=== PATIENT | female | born 1940 | race Caucasian/White ===

== ENCOUNTER 2020-01-21 17:05 | Observation (INO) ==
--- NOTE | 2020-01-21 17:33 | ERNOTE ---
GI Bleeding/Rectal Pain ER Date of Service: 01/21/20 Presenting Symptoms: vomiting blood Time Seen by Provider: 01/21/20 17:30 Source: patient Exam Limitations: no limitations Immunizations: IMMUNIZATION HX Immunizations Up to Date No History of Influenza Vaccine Yes Hx Pneumococcal Vaccination Yes Allergies/Adverse Reactions: Allergies No Known Allergies Allergy (Verified 01/21/20 17:18) Home Medications: HOME MEDICATIONS Aspirin 81 mg PO DAILY 01/21/20 [Last Taken Unknown] - Pain Score Pain Score #1 Pain Score: 0 Narrative: The patient is a 79 year old female who presents for hematemesis which has been present since today at 1400. There are associated symptoms of dizziness/lightheadedness. The patient denies pain. There are no alleviating factors. There are no aggravating factors. Previous treatments have included: none. The past medical history includes: Trigeminal neuralgia. The social history is negative. The patient has had no ill contact. Patient states this afternoon she develop nausea and unsettled stomach followed by vomiting of blood and clots. Patient reports vomitus was dark red to brown in color with several small blood clots. Patient states she manages her trigeminal neuralgia pain with Asa 81mg po and typically takes 8 tabs daily. Patient reports normal bowel movement yesterday of normal brown stool, denies any blood or dark stool with bowel movement. Patient denies daily alcohol use. Patient denies any trauma, harsh coughing or choking events. Patient states she last ate hamburger at 1200. Review of Systems - Review of Systems Constitutional: Present: chills, fatigue. Absent: recent illness, fever EYE: Present: no symptoms reported. Absent: vision changes ENT: Present: no symptoms reported. Absent: ear pain, nasal drainage, sore throat Respiratory: Present: no symptoms reported. Absent: shortness of breath, cough Cardiology: Present: no symptoms reported. Absent: chest pain Gastrointestinal/Abdominal: Present: nausea, vomiting. Absent: diarrhea, constipation, abdominal pain Genitourinary: Present: no symptoms reported. Absent: dysuria, decreased ur inary output Musculoskeletal: Present: no symptoms reported Skin: Present: no symptoms reported. Absent: rash Neurological: Present: dizziness/light-headedness All Other Systems: All systems neg except as marked Medical History (Last Reviewed 01/21/20 @ 17:46 by ALICIA Hernandez) History of ankle fracture History of kidney stones History of trigeminal neuralgia History of wrist fracture history of sternum fracture Surgical History: Surgical History (Last Reviewed 01/21/20 @ 17:45 by ALICIA Hernandez) History of cholecystectomy History of hysterectomy Family History: Family History (Last Reviewed 01/21/20 @ 17:45 by ALICIA Hernandez) Other Family history non-contributory Social History: (Last Reviewed 01/21/20 @ 17:45 by ALICIA Hernandez) Tobacco: Smoking Status: Never smoker Physical Exam - Physical Exam General Appearance: Present: wd/wn, alert, no apparent distress Head Exam: Present: normal inspection, no evidence of injury Eye Exam: Normal inspection: bilateral, PERRL: bilateral, EOMI: bilateral Ears, Nose, Throat: Present: normal pharynx Neck: Present: normal inspection, nontender Respiratory: Present: no respiratory distress, normal breath sounds, no accessory muscle use, lungs clear Cardiovascular/Chest: Present: no murmur, normal peripheral pulses, tachycardia - rate 104 Gastrointestinal/Abdominal: Present: normal bowel sounds, nontender, nondistended, soft, no organomegaly Neurological Exam: Present: alert, oriented, normal mood/affect, no motor/sensory deficits Skin Exam: Present: warm/dry, pallor Progress - Date and Time Seen: Date and Time: 01/21/20 18:37 Case discussed with , will present to evaluate patient for plan for EGD. 01/21/20 18:48 Discussed results as well as plan of care with patient, verbalized understanding. - Results and Orders Patient's Lab Results:: I have reviewed the patient's lab results. - Vital Signs Patient's Vital Signs:: I have reviewed the patient's vital signs. Vital Signs: Vital Signs 01/21/20 17:15 Temperature 36.2 C Pulse Rate 104 H Respiratory Rate 18 Blood Pressure 113/64 O2 Sat by Pulse Oximetry 97 - X-Ray X-Ray #1 X-Ray: abdomen Interpretation: Reviewed by me X-ray Comments: IMPRESSION: 1. No acute plain film pathology detected. Electronically signed by Toney Rodrigues M.D.. - Progress/Reassessment Chief Complaint: GI Bleed Progress:: Improved Departure Clinical Impression: Upper GI bleed - Departure Disposition: Still a patient Condition: Stable
[2020-01-21] MEDS ORDERED: PANTOPRAZOLE SODIUM 40 MG/100 ML PIGGYBACK IV ONE (17:44)
[2020-01-21 17:53] LABS: Hematocrit 33.6 % (37.0-47.0); Hemoglobin 10.6 gm/dL (12.5-16.0); Mean Cell Volume 88.2 fl (78-100); Mean Corpuscular Hemoglobin 27.8 pg (27-31); Mean Corpuscular Hgb Conc 31.5 g/dl (32-36); Mean Platelet Volume 10.2 fl (8-12.5); Neutrophil # 7.7 K/mm3 (1.3-6.0); Platelet Count 281 K/mm3 (150-450); Red Blood Count 3.81 M/mm3 (4.2-5.4); Red Cell Distribution Width 15.1 % (11.5-14.0); White Blood Count 9.6 K/mm3 (4.0-10.5)
[2020-01-21] MEDS: NORMAL SALINE 1,000 ML IV ONE ×2 (17:55→20:05)
[2020-01-21 18:07] LABS: Prothrombin Time (Patient) 10.7 Seconds (9.1-10.7)
[2020-01-21 18:09] LABS: ALT 11 U/L (19-67); AST 11 U/L (0-48); Alkaline Phosphatase * 126 U/L (50-170); Anion Gap 10.7 mmol/L (6.8-13.8); BUN/Creatinine Ratio 27.8 (9.0-21.6); Bilirubin, Total 0.3 mg/dL (0.0-1.1); Blood Urea Nitrogen 22 mg/dL (3-23); Calcium * 8.5 mg/dL (7.9-10.9); Carbon Dioxide 30.1 mmol/L (24-32.6); Chloride 107 mmol/L (97-106); Glucose * 124 mg/dL (70-110); Potassium 3.8 mmol/L (3.4-4.6); Sodium 144 mmol/L (132-142); Total Protein 6.4 gm/dL (6.2-8.2)
[2020-01-21 18:10] LABS: INR 1.08 INR (0.92-1.08); Partial Thrombolplastin Time 22.9 Seconds (24-32)
--- NOTE | 2020-01-21 19:02 | HP ---
Chief Complaint - Chief Complaint Date of Service: 01/21/20 Time of Service: 19:01 Chief Complaint: throwing up blood History of Present Illness: This AM she got up to go to the bathroom and felt light headed. She lay down again. Later she got up again and again got light headed. She laid down on the couch and then began to vomit blood. She takes a chewable "baby aspirin" about 8 times a day for trigeminal neuralgia pain. Hgb 10.6 plt 281 and INR 1.08 Medical History (Last Reviewed 01/21/20 @ 19:02 by Joan Parkinson MD) History of ankle fracture History of kidney stones History of trigeminal neuralgia History of wrist fracture history of sternum fracture Surgical History: Surgical History (Last Reviewed 01/21/20 @ 19:02 by Joan Parkinson MD) History of cholecystectomy History of hysterectomy Family History: Family History (Last Reviewed 01/21/20 @ 19:02 by Joan Parkinson MD) Other Family history non-contributory Social History: (Last Reviewed 01/21/20 @ 19:02 by Joan Parkinson MD) Tobacco: Smoking Status: Never smoker Review Of Systems (GEN) - Review of Systems Generalized/Overall Review: Absent: Chills, Fever EENTM: Present: Other - trigeminal neuralgia right side Respiratory: Present: No Symptoms Reported. Absent: Cough, Shortness of Breath Cardiac: Present: No Symptoms Reported. Absent: Chest Pain, Edema, Palpitations Abdominal: Present: Hematemesis. Absent: Abdominal Pain, Diarrhea, Bright blood from rectum Genitourinary: Present: No Symptoms Reported Musculoskeletal: Present: No Symptoms Reported Neurological: Present: Other - trigeminal neuralgia Skin: Present: No Symptoms Reported Endocrine: Present: No Symptoms Reported Immunizations: IMMUNIZATION HX Immunizations Up to Date No History of Influenza Vaccine Yes Hx Pneumococcal Vaccination Yes Allergies/Adverse Reactions: Allergies Allergy/AdvReac Type Severity Reaction Status Date / Time No Known Allergies Allergy Verified 01/21/20 17:18 Home Medications: HOME MEDICATIONS Aspirin 81 mg PO DAILY 01/21/20 [Last Taken Unknown] Exam - Exam Vital Signs: Vital Signs - Last Taken Temp 36.2 C 01/21/20 17:15 Pulse 91 01/21/20 18:53 Resp 19 01/21/20 18:53 BP 119/63 01/21/20 18:53 Pulse Ox 99 01/21/20 18:53 Constitutional: Present: Alert, Oriented x3, No distress ENT Exam: Present: normal ENT inspection, other - poor vision Eye Exam: bilateral eye: normal inspection Neck: Present: full range of motion, normal inspection Breasts: Present: Exam deferred Respiratory: Present: normal breath sounds Cardiovascular/Chest: Present: regular rate, rhythm Abdomen: Present: Normal bowel sounds, soft, nondistended /Rectal: Present: Exam deferred Extremity: Present: normal range of motion, normal inspection, no pedal edema, no calf tenderness Skin Exam: Present: pallor 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, normal cerebellar test, no motor/sensory deficits Appearance: Present: appropriate appearance Eye contact: Present: cooperative, good eye contact, normal speech Thoughts: Present: normal thought pattern Diagnostic Studies: Abnormal Lab Results 01/21/20 01/21/20 01/21/20 Range/Units 17:45 17:45 17:45 RBC 3.81 L (4.2-5.4) M/mm3 Hgb 10.6 L (12.5-16.0) gm/dL Hct 33.6 L (37.0-47.0) % MCHC 31.5 L (32-36) g/dl RDW 15.1 H (11.5-14.0) % Neutrophils % 80.0 H (42-75.0) % Lymphocytes % 12.7 L (20-51) % Neutrophils # 7.7 H (1.3-6.0) K/mm3 Lymphocytes # 1.22 L (1.5-3.5) k/mm3 PTT ([place]) 22.9 L (24-32) Seconds Sodium 144 H (132-142) mmol/L Plasma Sodium 144 H (130-142) mmol/L Chloride 107 H (97-106) mmol/L BUN/Creatinine Ratio 27.8 H (9.0-21.6) Random Glucose 124 H (70-110) mg/dL ALT 11 L (19-67) U/L Albumin 3.0 L (3.4-5.0) gm/dl Laboratory Results WBC 9.6 K/mm3 (4.0-10.5) 01/21/20 17:45 RBC 3.81 M/mm3 (4.2-5.4) L 01/21/20 17:45 Hgb 10.6 gm/dL (12.5-16.0) L 01/21/20 17:45 Hct 33.6 % (37.0-47.0) L 01/21/20 17:45 MCV 88.2 fl (78-100) 01/21/20 17:45 MCH 27.8 pg (27-31) 01/21/20 17:45 MCHC 31.5 g/dl (32-36) L 01/21/20 17:45 RDW 15.1 % (11.5-14.0) H 01/21/20 17:45 Plt Count 281 K/mm3 (150-450) 01/21/20 17:45 MPV 10.2 fl (8-12.5) 01/21/20 17:45 Immature Gran % (Auto) 0.30 % (0.001-0.429) 01/21/20 17:45 Immature Gran # (Auto) 0.03 K/mm3 (0.000-0.0310) 01/21/20 17:45 Neutrophils % 80.0 % (42-75.0) H 01/21/20 17:45 Lymphocytes % 12.7 % (20-51) L 01/21/20 17:45 Monocytes % 6.0 % (0.0-9) 01/21/20 17:45 Eosinophils % 0.6 % (0.0-3.0) 01/21/20 17:45 Basophils % 0.4 % (0.0-1.0) 01/21/20 17:45 Nucleated RBC % 0.0 k/mm3 (0-1) 01/21/20 17:45 Neutrophils # 7.7 K/mm3 (1.3-6.0) H 01/21/20 17:45 Lymphocytes # 1.22 k/mm3 (1.5-3.5) L 01/21/20 17:45 Monocytes # 0.6 k/mm3 (0.0-1.0) 01/21/20 17:45 Eosinophils # 0.1 k/mm3 (0.0-0.7) 01/21/20 17:45 Absolute Basophils 0.0 k/mm3 (0.0-0.1) 01/21/20 17:45 PT 10.7 Seconds (9.1-10.7) 01/21/20 17:45 INR (Anticoag Therapy) 1.08 INR (0.92-1.08) 01/21/20 17:45 PTT (Trip) 22.9 Seconds (24-32) L 01/21/20 17:45 Sodium 144 mmol/L (132-142) H 01/21/20 17:45 Plasma Sodium 144 mmol/L (130-142) H 01/21/20 17:45 Potassium 3.8 mmol/L (3.4-4.6) 01/21/20 17:45 Chloride 107 mmol/L (97-106) H 01/21/20 17:45 Carbon Dioxide 30.1 mmol/L (24-32.6) 01/21/20 17:45 Anion Gap 10.7 mmol/L (6.8-13.8) 01/21/20 17:45 BUN 22 mg/dL (3-23) 01/21/20 17:45 Creatinine 0.79 mg/dL (0.4-1.4) 01/21/20 17:45 Est GFR (Non-Af Amer) 75 mL/min (60-130) 01/21/20 17:45 BUN/Creatinine Ratio 27.8 (9.0-21.6) H 01/21/20 17:45 Random Glucose 124 mg/dL (70-110) H 01/21/20 17:45 Calcium 8.5 mg/dL (7.9-10.9) 01/21/20 17:45 Calcium Adj for Albumin 9.0 mg/dL (8.4-10.2) 01/21/20 17:45 Total Bilirubin 0.3 mg/dL (0.0-1.1) 01/21/20 17:45 AST 11 U/L (0-48) 01/21/20 17:45 ALT 11 U/L (19-67) L 01/21/20 17:45 Alkaline Phosphatase 126 U/L (50-170) 01/21/20 17:45 C-Reactive Prot, Quant Less than 0.2 mg/dL (0.0-0.9) 01/21/20 17:45 Total Protein 6.4 gm/dL (6.2-8.2) 01/21/20 17:45 Albumin 3.0 gm/dl (3.4-5.0) L 01/21/20 17:45 Assessment/Plan - Assessment/Plan (1) Upper GI bleed Assessment: Pamphlets on GERD and EGD reviewed and given. Explained rationale for EGD to determine if bleeding is from gastritis or ulcer. The possible risks and complications were discussed. After an interactive discussion, her questions were answered to her apparent satisfaction and informed consent for EGD with biopsy obtained. Problem: Acute
[2020-01-21] MEDS ORDERED: PROPOFOL VIAL IV ONE (19:32)
--- NOTE | 2020-01-21 19:38 | ANES ---
Anesthesia Pre Procedure Eval Vitals/Labs: Last Vital Signs Temp 36.2 C 01/21/20 17:15 Pulse 93 01/21/20 19:31 Resp 16 01/21/20 19:31 BP 139/72 01/21/20 19:31 Pulse Ox 99 01/21/20 19:31 HOME MEDICATIONS Aspirin 81 mg PO DAILY 01/21/20 [Last Taken Unknown] Allergies/Adverse Reactions: Allergies Allergy/AdvReac Type Severity Reaction Status Date / Time No Known Allergies Allergy Verified 01/21/20 17:18 - Planned Procedure Planned Procedure: Throwing up blood x 2 hrs Medication List Reviewed:: Yes Allergies Verified: Yes Medical History (Last Reviewed 01/21/20 @ 19:37 by Vicente Mckenzie CRNA) History of ankle fracture History of kidney stones History of trigeminal neuralgia History of wrist fracture history of sternum fracture Surgical History (Last Reviewed 01/21/20 @ 19:37 by Vicente Mckenzie CRNA) History of cholecystectomy History of hysterectomy Family History (Last Reviewed 01/21/20 @ 19:37 by Vicente Mckenzie CRNA) Other Family history non-contributory - Family Anesthesia History Family History:: no untoward family reactions to anesthesia - Airway/Neck/Teeth Within Normal Limits:: Yes Denture Type: Full upper, Full lower Neck Exam: full range of motion Mallampatti Score: 2 Thyromental (T-M) distance: > 6 cm Mandibulo Hyoid distance: > 3 cm - Respiratory Respiratory Physical: lungs clear Sleep Apnea currently treated: No Sleep Apnea by current assessment: No - Cardiovascular Tolerate Activity: Fair Heart Sounds: S1 & S2, Regular - Gastrointestinal NPO since: 1199 - Anesthesia Assessment and Plan ASA Class: PS, II, E Anesthesia Type Plan: MAC Planned difficult intubation/equipment available: No
--- NOTE | 2020-01-21 20:28 | ANES ---
Post Anesthesia Assessment - Vital Signs Vitals: Last Vital Signs Temp 36.2 C 01/21/20 17:15 Pulse 93 01/21/20 19:31 Resp 16 01/21/20 19:31 BP 139/72 01/21/20 19:31 Pulse Ox 99 01/21/20 19:31 Airway Patency: Normal - Mental Status Level Of Consciousness: Awake - Pain Level Pain Score: 0 - N/V Assessment Nausea/Vomiting Presence: None Dehydration:: No
--- NOTE | 2020-01-21 20:28 | ANES ---
Post Anesthesia Discharge - Transfer of Care Transfer of Care handoff given to nurse: Yes - Anesthesia Post Op Note Anesthesia Post Op Note: discharged to room 114
[2020-01-21] MEDS ORDERED: ONDANSETRON HCL/PF 2 MG/ML VIAL IV PRN (20:38)
[2020-01-21] MEDS ORDERED: ACETAMINOPHEN 1,000 MG/100 ML BTL IV ONE (20:45)
--- NOTE | 2020-01-21 20:56 | OR ---
Operative Report - Dictated Report Narrative: Operative Report Date of operation: 01/21/2020 Preoperative diagnosis: Upper GI bleeding Postoperative diagnosis: Upper GI bleeding, site undetermined. Gastritis Operation: EGD with biopsies Surgeon: Dr Parkinson Anesthesia: ALEC Mckenzie CRNA Indications for procedure: The patient is a 79-year-old female who presented to the emergency room after an episode of hematemesis. She takes many chewable aspirin daily for trigeminal neuralgia. Findings: Hiatal hernia, gastritis, old blood and clots in the stomach. No active bleeding site identified. Normal esophagus, no Connie-Hilliard tear, normal duodenal bulb Narrative of procedure: The patient was identified preoperatively, and prior to the administration of anesthetic a multidisciplinary timeout was observed With the patient in the recumbent position, a bite-block was placed, intravenous sedation administered, and the patient's eyes covered with a towel. The flexible fiberoptic gastroscope was advanced into the posterior pharynx which appeared normal. There was no blood from the nasopharynx. The supraglottic larynx appeared normal. The cords appeared normal, moved well, and opposed in the midline. The scope was advanced under direct vision into the proximal esophagus which appeared normal. There was old blood in the esophagus refluxing from the stomach. The esophagus appeared freely distensible with normal mucosa. There were no esophageal varices. The esophageal mucosa appeared normal down to the gastroesophageal junction which was sharp and noninflamed. The GE junction appeared normally distensible. There was a sliding hiatal hernia. The scope was advanced into the stomach which was insufflated with air. The stomach was filled with old blood and clots. As much of this material as possible was suctioned to prevent vomiting and aspiration. The patient was repositioned so that all portions of the fundus and antrum were visualized. There was marked gastritis but no selene ulcers or neoplastic lesions or vascular malformations were identified. The pylorus appeared patent. The scope was advanced into the duodenal bulb which appeared normal. The scope was advanced further to the horizontal portion of the duodenum which appeared normal. The scope was slowly withdrawn through the duodenal bulb with confirmation that no active ulcer was present. The scope was withdrawn into the stomach and sales representative cash registers biopsies of gastric mucosa obtained for CLOtest and pathology. The biopsy sites were seen to be hemostatic. As much blood as possible was suctioned. The insufflated air was removed, the scope withdrawn from the patient, and the procedure terminated. The patient tolerated the anesthetic and procedure well without complication and was transferred to the regular floor awake and in stable condition. Plan at this time is for overnight observation with IV fluids, serial hemoglobin hematocrit determinations, proton pump inhibitor, ice chips only, IV Tylenol for pain. Reviewed and electronically signed
[2020-01-21] MEDS: NORMAL SALINE 1,000 ML IV PRN (21:20)
[2020-01-22 00:12] LABS: Hematocrit 25.8 % (37.0-47.0); Hemoglobin 8.4 gm/dL (12.5-16.0)
[2020-01-22 06:14] LABS: Hematocrit 26.7 % (37.0-47.0); Hemoglobin 8.6 gm/dL (12.5-16.0)
[2020-01-22] MEDS: NORMAL SALINE 1,000 ML IV PRN (06:59)
[2020-01-22] MEDS ORDERED: ACETAMINOPHEN 1,000 MG/100 ML BTL IV PRN (09:15)
--- NOTE | 2020-01-22 09:22 | PN ---
Subjective - Date and Time Seen Date: 01/22/20 Time: 09:17 Objective Objective Narrative: Feels "much better". Not dizzy when up to BR. Moved her bowels and stomach is growling like could drink something. No neuralgia pain all night. Hgb fell to 8.4 but then stable at 8.6 - Review of Systems Generalized/Overall Review: Denies: Chills, Fever EENTM: Reports: No Symptoms Reported Respiratory: Reports: No Symptoms Reported. Denies: Shortness of Breath Cardiac: Reports: No Symptoms Reported. Denies: Chest Pain, Palpitations Abdominal: Denies: Hematemesis, Abdominal Pain, Melena Genitourinary Symptoms: Reports: No Symptoms Reported Musculoskeletal Complaints: Reports: No Symptoms Reported Neurological: Reports: No Symptoms Reported Skin: Reports: No Symptoms Reported Endocrine: Reports: No Symptoms Reported - Vitals Vitals: Last Vital Signs Temp 37.4 C 01/22/20 06:00 Pulse 76 01/22/20 07:21 Resp 12 01/22/20 07:21 BP 131/69 01/22/20 07:21 Pulse Ox 96 01/22/20 07:21 - Abnormal Lab Findings Abnormal Lab Findings: Abnormal Lab Results 01/21/20 01/21/20 01/21/20 Range/Units 17:45 17:45 17:45 RBC 3.81 L (4.2-5.4) M/mm3 Hgb 10.6 L (12.5-16.0) gm/dL Hct 33.6 L (37.0-47.0) % MCHC 31.5 L (32-36) g/dl RDW 15.1 H (11.5-14.0) % Neutrophils % 80.0 H (42-75.0) % Lymphocytes % 12.7 L (20-51) % Neutrophils # 7.7 H (1.3-6.0) K/mm3 Lymphocytes # 1.22 L (1.5-3.5) k/mm3 PTT (Trip) 22.9 L (24-32) Seconds Sodium 144 H (132-142) mmol/L Plasma Sodium 144 H (130-142) mmol/L Chloride 107 H (97-106) mmol/L BUN/Creatinine Ratio 27.8 H (9.0-21.6) Random Glucose 124 H (70-110) mg/dL ALT 11 L (19-67) U/L Albumin 3.0 L (3.4-5.0) gm/dl 01/22/20 01/22/20 Range/Units 00:10 06:10 RBC (4.2-5.4) M/mm3 Hgb 8.4 L 8.6 L (12.5-16.0) gm/dL Hct 25.8 L 26.7 L (37.0-47.0) % MCHC (32-36) g/dl RDW (11.5-14.0) % Neutrophils % (42-75.0) % Lymphocytes % (20-51) % Neutrophils # (1.3-6.0) K/mm3 Lymphocytes # (1.5-3.5) k/mm3 PTT ([place]) (24-32) Seconds Sodium (132-142) mmol/L Plasma Sodium (130-142) mmol/L Chloride (97-106) mmol/L BUN/Creatinine Ratio (9.0-21.6) Random Glucose (70-110) mg/dL ALT (19-67) U/L Albumin (3.4-5.0) gm/dl - Exam Constitutional: Present: Alert, Oriented x3, Cooperative, Well nourished, No distress ENT Exam: Present: normal ENT inspection Neck: Present: normal inspection Respiratory: Present: no respiratory distress Cardiovascular/Chest: Present: regular rate, rhythm Abdomen: Present: nontender /Rectal: Present: Exam deferred Extremity: Present: normal range of motion, normal inspection Skin Exam: Present: pallor 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 Saline lock if tolerated. Will trial IV Tylenol if neuralgia pain returns. Re-check Hgb/Hct at noon. - Problems/Diagnosis (1) Upper GI bleed Problem: Acute
[2020-01-22 11:33] LABS: Urine Appearance Clear (CLEAR); Urine Bilirubin Negative (NEGATIVE); Urine Blood 50 /ul (NEGATIVE); Urine Color Yellow; Urine Ketone Negative (NEGATIVE)
[2020-01-22 11:34] LABS: Urine Bacteria None Seen; Urine Nitrite Negative (NEGATIVE); Urine Protein Negative (NEGATIVE); Urine RBC 0-5 /hpf (0-5); Urine Specific Gravity 1.015 SP.GR. (1.005-1.010); Urine Urobilinogen Normal (NORMAL); Urine WBC 0-5 /hpf (0-5)
[2020-01-22 11:59] LABS: Hematocrit 26.8 % (37.0-47.0); Hemoglobin 8.5 gm/dL (12.5-16.0)
--- NOTE | 2020-01-22 14:54 | DS ---
(1) Upper GI bleed Problem: Resolved Date of Discharge:: 01/22/20 Hospital Course: She was taken to the operating room for an EGD which revealed the stomach full of blood, however no active bleeding sites were identified Specifically there was no evidence of ulcer. She did have ch gastropathy (pathology and CLOtest pending) Her vital signs remained normal. Her hemoglobin decreased initially from 10.6- 8.4 but then remained stable at 8.6 and 8.5 today. She was able to tolerate clear liquids and was up without assistance. She did pass some black bowel movements. She will be discharged home on diet as tolerated. She is specifically not to take any more aspirin-containing products She had success with Tylenol for her neuralgia pain while in hospital--- and she will continue that for discomfort She will be prescribed pantoprazole 40 mg p.o. daily for 28 days and ferrous sulfate 325 mg p.o. q. OD Her case was discussed with Dr. Valdez who has agreed to see the patient to establish and to follow-up after this admission. Procedures Performed: see notes below - EGD with biopsies Results and Findings: Lab Pending Results 01/21/20 17:45: WBC 9.6, RBC 3.81 L, Hgb 10.6 L, Hct 33.6 L, MCV 88.2, MCH 27.8, MCHC 31.5 L, RDW 15.1 H, Plt Count 281, MPV 10.2, Immature Gran % (Auto) 0.30, Immature Gran # (Auto) 0.03, Neutrophils % 80.0 H, Lymphocytes % 12.7 L, Monocytes % 6.0, Eosinophils % 0.6, Basophils % 0.4, Nucleated RBC % 0.0, Neutrophils # 7.7 H, Lymphocytes # 1.22 L, Monocytes # 0.6, Eosinophils # 0.1, Absolute Basophils 0.0 01/21/20 17:45: PT 10.7, INR (Anticoag Therapy) 1.08, PTT (Trip) 22.9 L 01/21/20 17:45: Sodium 144 H, Plasma Sodium 144 H, Potassium 3.8, Chloride 107 H, Carbon Dioxide 30.1, Anion Gap 10.7, BUN 22, Creatinine 0.79, Est GFR (Non-Af Amer) 75, BUN/Creatinine Ratio 27.8 H, Random Glucose 124 H, Calcium 8.5, Calcium Adj for Albumin 9.0, Total Bilirubin 0.3, AST 11, ALT 11 L, Alkaline Phosphatase 126, C-Reactive Prot, Quant Less than 0.2, Total Protein 6.4, Albumin 3.0 L 01/21/20 17:45: Blood Type B Negative, Antibody Screen Negative 01/22/20 00:10: Hgb 8.4 L, Hct 25.8 L 01/22/20 06:10: Hgb 8.6 L, Hct 26.7 L 01/22/20 11:16: Urine Color Yellow, Urine Appearance Clear, Urine pH 7.0, Ur Specific [place] 1.015, Urine Protein Negative, Urine Glucose (UA) Negative, Urine Ketones Negative, Urine Blood 50 H, Urine Nitrate Negative, Urine Bilirubin Negative, Urine Urobilinogen Normal, Ur Leukocyte Esterase Negative, Urine RBC 0-5, Urine WBC 0-5, Ur Epithelial Cells 0-5, Urine Bacteria None seen, Urine Culture Comments No culture indicated 01/22/20 11:56: Hgb 8.5 L, Hct 26.8 L Discharge Location: Home Disposition: Home self-care Condition: Good Discharge Activity: Activity as tolerated Discharge Diet: General/regular food Referrals: Blanco Bustillo MD [Primary Care Provider] - Problem Oriented Discharge Instructions to Patient/Family: Anemia, Nonspecific Additional Patient Instructions (free text): No aspirin-containing products Use OTC Tylenol for discomfort Complete Home Medications List: Complete Home Medication List: Ferrous Sulfate [Iron] 325 mg PO DAILY 30 Days tablet 01/22/20 Pantoprazole Sodium [Protonix] 40 mg PO DAILY #30 tab 01/22/20
[2020-01-22 15:13] VITALS: BP 137/65
== END 2020-01-22 15:15 | disposition home or self-care (01) ==
LOC: ER 17:05 → AMB 18:58 → MS 18:58 → AMB 19:41
PROVIDERS: ADMIT Surgery; ATTEND Surgery
CPT/HCPCS: 36415; 74019; 74020; 80053; 81001; 85014; 85018; 85025; 85610; 85730; 86140; 86850; 87081; 88305; 88312; 88888; 96365; 99285; G0378; J0131